=== PATIENT | female | born 1970 | race Caucasian/White ===

== ENCOUNTER → 2023-12-25 09:58 | Outpatient (REF) | payer OTHER, SELFPAY | LOC: MRI 3T 09:58 | PROVIDERS: ATTENDING PHYSICIAN Family Medicine Geriatric Medicine; FAMILY PHYSICIAN Family Medicine | DX: D05.12 Intraductal carcinoma in situ of left breast (principal); Z86.000 Personal history of in-situ neoplasm of breast; C50.919 Malignant neoplasm of unspecified site of unspecified female breast; Z15.02 Genetic susceptibility to malignant neoplasm of ovary; Z18.89 Other specified retained foreign body fragments; Z15.09 Genetic susceptibility to other malignant neoplasm | CPT/HCPCS: 77049; A9585 ==

== ENCOUNTER → 2024-06-23 10:16 | Outpatient (REF) | payer OTHER, SELFPAY | LOC: HWWDC 10:16 | PROVIDERS: ATTENDING PHYSICIAN Family Medicine Geriatric Medicine | DX: Z12.31 Encounter for screening mammogram for malignant neoplasm of breast (principal) | CPT/HCPCS: 77063; 77067 ==

== ENCOUNTER → 2024-12-23 09:48 | Outpatient (REF) | payer OTHER, SELFPAY | LOC: MRI 3T 09:48 | PROVIDERS: ATTENDING PHYSICIAN Family Medicine Geriatric Medicine; FAMILY PHYSICIAN Family Medicine | DX: C50.919 Malignant neoplasm of unspecified site of unspecified female breast (principal); Z85.3 Personal history of malignant neoplasm of breast; Z15.02 Genetic susceptibility to malignant neoplasm of ovary; Z15.89 Genetic susceptibility to other disease; Z15.09 Genetic susceptibility to other malignant neoplasm; Z12.39 Encounter for other screening for malignant neoplasm of breast | CPT/HCPCS: 77049; A9585 ==

== ENCOUNTER → 2025-06-24 09:53 | Outpatient (REF) | payer OTHER, SELFPAY | LOC: HWWDC 09:53 | PROVIDERS: ATTENDING PHYSICIAN Family Medicine Geriatric Medicine; FAMILY PHYSICIAN Family Medicine; REFERRING PHYSICIAN Nurse Practitioner Adult Health | DX: Z85.3 Personal history of malignant neoplasm of breast (principal) | CPT/HCPCS: 77063; 77067 ==